=== PATIENT | male | born 1965 | race Caucasian/White ===

== ENCOUNTER 2021-12-29 04:33 | Emergency (ER) | payer MEDICARE, SELFPAY ==
[2021-12-29] VITALS (20 sets, daily range): BP systolic 100–122; BP diastolic 73–88; PULSE 85–105; RESP 13–23; TEMP 36.7; O2SAT 93–99
--- NOTE | ~2021-12-29 | CT_ITS ---
EXAMINATION: CT abdomen pelvis w con DATE: 12/29/2021 06:16 INDICATION: Epigastric pain, nausea, bloody emesis and diarrhea. TECHNIQUE: Computed tomography (CT) of the abdomen and pelvis was performed with 75 mL Omnipaque-300 intravenous contrast. Automated exposure control and iterative reconstruction technique were employed . The dose-length product was 433.74 mGy-cm. COMPARISON: 08/27/2018 FINDINGS: Mild emphysema with dependent predominant atelectasis at the bilateral lung bases. Heart size is norm al. Minimal pericardial effusion. No pleural effusion. Small sliding-type hiatal hernia. Diffuse hepa tic steatosis. Spleen, pancreas and, bilateral adrenal glands and kidneys are normal. Calcified perip ortal lymph nodes consistent with old granulomatous disease. Bowels including the appendix are normal . Bladder is normal. No free intraperitoneal gas or fluid. No pathologically enlarged abdominal or pe lvic lymphadenopathy. Small fat-containing left inguinal hernia. Right-sided sacralized L5 segment. IMPRESSION: 1. Small sliding-type hiatal hernia. 2. Diffuse hepatic steatosis. 3. Very small pericardial effusion. Reviewed, dictated and finalized at [facility].
[2021-12-29 05:27] LABS: Basophils Percent Auto 0.5 % (0.2-1.2); Eosinophils Absolute Auto 0.1 K/mm3 (0-0.3); Eosinophils Percent Auto 1.1 % (0-4.4); Hematocrit 47.4 % (42.0-52.0); Hemoglobin 16.3 g/dL (14.0-18.0); Immature Granulocyte Absolute 0.03 K/mm3 (0.00-0.031); Immature Granulocyte Percent A 0.4 % (0-0.5); Lymphocytes Absolute Auto 1.64 K/mm3 (0.9-3.2); Lymphocytes Percent Auto 19.2 % (18.3-44.2); Mean Corpuscular HGB Conc 34.4 g/dl (32-36); Mean Corpuscular Hemoglobin 30.1 pg (26-34); Mean Corpuscular Volume 87.5 fl (80-100); Mean Platelet Volume 9.1 fl (7.4-10.4); Monocytes Absolute Auto 1.1 K/mm3 (0.1-0.6); Monocytes Percent Auto 12.3 % (2.6-8.5); Neutrophils Absolute Auto 5.7 K/mm3 (1.3-6.7); Neutrophils Percent Auto 66.5 % (45.5-73.1); Platelet Count Result 226 k/mm3 (150-375); Red Blood Count 5.42 M/mm3 (4.6-6.20); Red Cell Distribution Width 13.5 % (11.5-14.5); White Blood Count 8.5 K/mm3 (4.5-10.0)
[2021-12-29 05:39] LABS: Alanine Aminotransferase 65 U/L (6-50); Albumin Level 3.9 g/dL (3.5-5.1); Alkaline Phosphatase 73 U/L (38-126); Anion Gap 7 mmol/L (8-16); Aspartate Amino Transferase 118 U/L (17-59); Blood Urea Nitrogen 5 mg/dL (9-20); Calcium 8.3 mg/dL (8.4-10.2); Carbon Dioxide 32 mmol/L (22-30); Chloride 89 mmol/L (98-107); Estimated CRCL calculation 110 ml/min; Estimated Glomerular Filt Rate > 60; Glucose 123 mg/dL (65-110); Lipase 177 U/L (23-300); Potassium 3.3 mmol/L (3.4-5.0); Sodium 128 mmol/L (137-145)
[2021-12-29] MEDS: LIDOCAINE HCL 2% VISC SOLN 15 ML UDC 20 ML PO (05:50)
[2021-12-29] MEDS: MAG HYDROX/AL HYDROX/SIMETH 30 ML UDC PO (05:51)
[2021-12-29] MEDS: SODIUM CHLORIDE 0.9% IV 1,000 ML 999 ML IV CONT ×2 (05:51→06:56)
[2021-12-29] MEDS: ONDANSETRON INJ 4 MG/2 ML VIAL IV PUSH (05:51)
--- NOTE | 2021-12-29 05:55 | ED.ABDPAIN ---
HPI - Abdominal Pain General Chief Complaint: Abdominal Pain <Ritesh Hines MD - Last Filed: 12/29/21 07:03> Stated Complaint: Abd Pain <Ritesh Hines MD - Last Filed: 12/29/21 07:03> Time Seen by Provider: 12/29/21 05:07 <Ritesh Hines MD - Last Filed: 12/29/21 07:03> Source: patient <Ritesh Hines MD - Last Filed: 12/29/21 07:03> History of Present Illness HPI narrative: Patient presents with abdominal pain and esophageal pain. Reports he has been feeling sick for the past few days since being released from shelter. Reports has been throwing up and been unable to keep anything down. Reports he is noted streaks of blood and is vomit his pain appears to be getting worse so he came to the ER for evaluation. Denies any fevers, diarrhea, bloody stools, urinary symptoms. Ports his pain is primarily in his epigastric area achy, constant, no clear aggravating or alleviating factors, radiates up into his chest. Reports he is concerned that maybe he has an ulcer disease been stressed since leaving shelter. <Ritesh Hines MD - Last Filed: 12/29/21 07:03> Related Data Allergies/Adverse Reactions: Allergies Allergy/AdvReac Type Severity Reaction Status Date / Time bee venom protein (honey bee) Allergy Unknown Verified 03/11/17 15:55 <Ritesh Hines MD - Last Filed: 12/29/21 07:03> Review of Systems Review of Systems: CONSTITUTIONAL: Denies fever, chills, or sweats. EYES: Denies visual changes, redness, or discharge. ENT: Denies rhinorrhea, congestion, sore throat, or otalgia. CARDIOVASCULAR: Denies chest pain, palpitations, or edema. RESPIRATORY: Denies cough or dyspnea. GASTROINTESTINAL: Epigastric pain with nausea and vomiting GENITOURINARY: Denies dysuria or hematuria. SKIN: Denies rash or itching. MUSCULOSKELETAL: Denies back pain, joint pain, or myalgia. NEUROLOGIC: Denies headache, numbness, dizziness, or weakness. PSYCHIATRIC: Denies anxiety or depression. <Ritesh Hines MD - Last Filed: 12/29/21 07:03> All systems reviewed & are unremarkable except as noted in HPI and below <Ritesh Hines MD - Last Filed: 12/29/21 07:03> PMFSH Past Medical History Medical History: Medical History (Updated 12/29/21 @ 06:48 by Ritesh Hines MD) Patient denies significant medical history <Ritesh Hines MD - Last Filed: 12/29/21 07:03> Social History Social History: Social History (Updated 12/29/21 @ 05:58 by Ritesh Hines MD) Substance use type: does not use Living arrangements: homeless <Ritesh Hines MD - Last Filed: 12/29/21 07:03> Exam Narrative: GENERAL: Well-appearing, well-nourished, and in no acute distress. HEAD: Normocephalic, atraumatic. EYES: PERRLA and EOMI. ENT: Nares clear, no rhinorrhea or epistaxis. Mucous membranes moist. NECK: Supple. No masses. No JVD CHEST: Clear to auscultation. No respiratory distress. No wheezes rales or rhonchi HEART: Regular rate and rhythm. No murmur heard. Normal peripheral pulses. ABDOMEN: Soft, nontender, nondistended, normal active bowel sounds. EXTREMITIES: Normal range of motion. No edema. SKIN: Warm, dry, no rash. NEURO: No focal deficits. Alert and oriented x3. PSYCH: Normal mood and affect. <Ritesh Hines MD - Last Filed: 12/29/21 07:03> Course Reevaluation(s) Reevaluation #1: Patient is starting to feel improved after supportive therapies. <Ritesh Hines MD - Last Filed: 12/29/21 07:03> Patient care was signed out to me by Dr. Hines. CT on pelvis impression: Small hiatal hernia, with mild wall thickening of the distal esophagus. The need for upper GI endoscopy should be determined clinically. Diverticulosis without acute diverticulitis. No small bowel obstruction. No free intraperitoneal air. Normal appendix. --- Patient was updated on the results of CT. Patient was comfortable with the plan for discharge and close follow-up with <Carlos Duffy
[2021-12-29 06:54] LABS: Add Urine Microscopic? YES; Appearance Urine Clear (Clear); Bilirubin Urine Negative (Negative); Blood Urine Negative (Negative); Color Urine Yellow (Yellow); Glucose Urine UA Negative (Negative); Ketones Urine 2+ mg/dL (Negative); Leukocyte Esterase Ur Negative LEU/UL (Negative); Nitrate Urine Negative (Negative); Protein Urine Negative (Negative); Urobilinogen Urine 0.2 mg/dL (<2.0)
[2021-12-29] MEDS: POTASSIUM CHLORIDE 20 MEQ PACKET (FOR LIQUID) 40 MEQ PO (06:55)
[2021-12-29 06:58] LABS: RBC Urine 0-2 /hpf (0-2); WBC Urine 0-3 /hpf
--- NOTE | 2021-12-29 07:12 | PC.NURSE ---
Patient report received from MINDI Dubon. All questions answered and care of patient assumed. Patient resting comfortably in stretcher at this time. Reports pain at 5/10 at this time but denies nausea. Reports his pain is much improved and does not request any additional pain medication at this time. VSS. Awaiting CT results. Call light within reach. Will address needs as they arise.
== END 2021-12-29 08:00 | disposition home or self-care (01) ==
PROVIDERS: Emergency Provider Emergency Medicine
DX: R10.13 Epigastric pain (principal); E86.0 Dehydration; K44.9 Diaphragmatic hernia without obstruction or gangrene; K76.0 Fatty (change of) liver, not elsewhere classified; Z59.00 Homelessness unspecified
CPT/HCPCS: 36415; 74177; 80053; 81001; 83690; 85025; 96361; 96374; 99284; A9270; J2405; J7030; Q9967

== ENCOUNTER 2022-01-05 22:39 | Emergency (ER) | payer MEDICARE, SELFPAY ==
--- NOTE | ~2022-01-05 | CT_ITS ---
EXAMINATION: CT brain wo con DATE: 01/06/2022 01:46 INDICATION: Altered mental state. Intoxication. TECHNIQUE: Computed tomography (CT) of the head was performed without intravenous contrast. The mA wa s adjusted according to patient size. Iterative reconstruction technique was employed. Exam dose: 60 5.33 mGy-cm total exam DLP. COMPARISON: 03/24/2012 CT brain FINDINGS: No intracranial mass lesion or hemorrhage or cerebrovascular accident is evident. There is no midline shift or mass effect. There is greater than expected cerebral volume loss for age. No subdural or epidural hematoma. No fracture or bone destruction of the cranial vault. Included paranasal sinuses and mastoid air cell s are normally developed and aerated. IMPRESSION: No acute intracranial finding Reviewed, dictated and finalized at [facility]. Reviewed, dictated and finalized at location [facility].
[2022-01-05 22:40] VITALS: BP 125/83; PULSE 105; RESP 17; TEMP 36.3; O2SAT 94
[2022-01-05 22:50] VITALS: BP 125/83; PULSE 109; O2SAT 97
--- NOTE | 2022-01-05 22:56 | ED.GENADULT ---
HPI - General Adult General Chief complaint: Alcohol <Gustavo Galvez APRN - Last Filed: 01/05/22 23:45> Stated complaint: drunk, ams <Gustavo Galvez APRN - Last Filed: 01/05/22 23:45> Time Seen by Provider: 01/05/22 22:46 <Gustavo Galvez APRN - Last Filed: 01/05/22 23:45> History of Present Illness HPI narrative: 56-year-old male presents to the emergency room by EMS for evaluation of alcohol intoxication. According to EMS, patient was found in someone's yard unresponsive. Police were called to the scene and found the patient was intoxicated. Patient has no complaints of pain at this time. Patient states that he is homeless, currently living under a overpass <Gustavo Galvez APRN - Last Filed: 01/05/22 23:45> Related Data Allergies/adverse reactions: Allergies Allergy/AdvReac Type Severity Reaction Status Date / Time bee venom protein (honey bee) Allergy Unknown Unknown Verified 01/05/22 22:53 <Gustavo Galvez APRN - Last Filed: 01/05/22 23:45> Review of Systems Review of Systems: ROS unobtainable: Yes unobtainable due to mental status <Gustavo Galvez APRN - Last Filed: 01/05/22 23:45> [facility] Past Medical History Medical History: Medical History Patient denies significant medical history <Gustavo Galvez APRN - Last Filed: 01/05/22 23:45> Social History Social History: Social History Substance use type: does not use <Gustavo Galvez APRN - Last Filed: 01/05/22 23:45> Exam Narrative: GENERAL: Disheveled HEAD: Normocephalic, atraumatic. EYES: PERRLA and EOMI. CHEST: Clear to auscultation. No respiratory distress. No wheezes rales or rhonchi HEART: Regular rate and rhythm. No murmur heard. Normal peripheral pulses. ABDOMEN: Soft, nontender, nondistended, normal active bowel sounds. EXTREMITIES: Normal range of motion. No edema. SKIN: Warm, dry, no rash. NEURO: No focal deficits. Alert and oriented x 1. PSYCH: Acutely intoxicated. <Gustavo Galvez APRN - Last Filed: 01/05/22 23:45> Course Reevaluation(s) Reevaluation #1: Received signout on the patient pending metabolization and reassessment <Ritesh Hines MD - Last Filed: 01/06/22 18:58> Date: 01/06/22 <Ritesh Hines MD - Last Filed: 01/06/22 18:58> Time: 02:56 <Ritesh Hines MD - Last Filed: 01/06/22 18:58> Reevaluation #2: Patient remained clinically stable throughout the remainder of his ER stay. Patient was signed out to Dr. Kauffman for continued metabolization reevaluation. <Ritesh Hines MD - Last Filed: 01/06/22 18:58> Date: 01/06/22 <Ritesh Hines MD - Last Filed: 01/06/22 18:58> Time: 07:03 <Ritesh Hines MD - Last Filed: 01/06/22 18:58> Reevaluation #3: Patient signed out to me pending improvement intoxication, he is now up, feeling better, ready to go home, has no further complaints, he has a ride. He is stable for discharge at this time and can return for any further issues. <Cristiana Kauffman MD - Last Filed: 01/06/22 10:24> Vital Signs Vital signs: Vital Signs Temperature 36.3 C L 01/05/22 22:40 Pulse Rate 105 H 01/05/22 22:40 Respiratory Rate 17 01/05/22 22:40 Blood Pressure 125/83 01/05/22 22:40 Pulse Oximetry 94 01/05/22 22:40 Temperature 36.3 C L 01/05/22 22:40 Pulse Rate 102 H 01/06/22 09:07 Respiratory Rate 16 01/06/22 09:07 Blood Pressure 126/83 01/06/22 09:07 Pulse Oximetry 95 01/06/22 09:07 <Gustavo Galvez, TURKEY BONER - Last Filed: 01/05/22 23:45> Vital Signs Temperature 36.3 C L 01/05/22 22:40 Pulse Rate 105 H 01/05/22 22:40 Respiratory Rate 17 01/05/22 22:40 Blood Pressure 125/83 01/05/22 22:40 Pulse Oximetry 94 01/05/22 22:40 Temperature 36.3 C L 01/05/22 22:40 Pulse Rate 102 H 01/06/22 09:07 Respiratory Rate 16 01/06/22 09:
--- NOTE | 2022-01-05 23:20 | PC.NURSE ---
rf technician placed with pt as he is a fall risk.
[2022-01-05 23:45] VITALS: BP 119/75; PULSE 110; O2SAT 96
--- NOTE | 2022-01-05 23:53 | PC.NURSE ---
Pt placed on bed alarm and sitter at bedside due to intoxication and impulsivity
[2022-01-06 00:48] LABS: Add Urine Microscopic? YES; Appearance Urine Clear (Clear); Bilirubin Urine Negative (Negative); Blood Urine Trace-lysed (Negative); Color Urine Yellow (Yellow); Glucose Urine UA Negative (Negative); Ketones Urine Negative (Negative); Leukocyte Esterase Ur Negative LEU/UL (Negative); Nitrate Urine Negative (Negative); Protein Urine Negative (Negative); Specific Grav Ur <= 1.005 (1.001-1.035); Urobilinogen Urine 0.2 mg/dL (<2.0); pH Urine 5.5 (5.0-9.0)
[2022-01-06 00:49] LABS: Bacteria Urine Trace /hpf; RBC Urine 0-2 /hpf (0-2); WBC Urine 0-3 /hpf
[2022-01-06 00:49] LABS: Basophils Absolute Auto 0.1 K/mm3 (0.0-0.1); Basophils Percent Auto 0.9 % (0.2-1.2); Eosinophils Absolute Auto 0.1 K/mm3 (0-0.3); Hemoglobin 14.6 g/dL (14.0-18.0); Immature Granulocyte Absolute 0.02 K/mm3 (0.00-0.031); Immature Granulocyte Percent A 0.3 % (0-0.5); Lymphocytes Absolute Auto 2.54 K/mm3 (0.9-3.2); Lymphocytes Percent Auto 32.9 % (18.3-44.2); Mean Corpuscular Hemoglobin 30.5 pg (26-34); Mean Corpuscular Volume 89.8 fl (80-100); Mean Platelet Volume 8.8 fl (7.4-10.4); Monocytes Absolute Auto 0.8 K/mm3 (0.1-0.6); Monocytes Percent Auto 10.6 % (2.6-8.5); Neutrophils Absolute Auto 4.2 K/mm3 (1.3-6.7); Neutrophils Percent Auto 54.3 % (45.5-73.1); Platelet Count Result 233 k/mm3 (150-375); Red Blood Count 4.79 M/mm3 (4.6-6.20); Red Cell Distribution Width 14.8 % (11.5-14.5); White Blood Count 7.7 K/mm3 (4.5-10.0)
[2022-01-06 00:54] LABS: Alanine Aminotransferase 67 U/L (6-50); Albumin Level 4.2 g/dL (3.5-5.1); Alkaline Phosphatase 79 U/L (38-126); Anion Gap 13 mmol/L (8-16); Aspartate Amino Transferase 100 U/L (17-59); Bilirubin,Total 0.4 mg/dL (0.2-1.3); Blood Urea Nitrogen 9 mg/dL (9-20); Calcium 7.8 mg/dL (8.4-10.2); Carbon Dioxide 25 mmol/L (22-30); Chloride 104 mmol/L (98-107); Estimated CRCL calculation 77 ml/min; Estimated Glomerular Filt Rate > 60; Glucose 97 mg/dL (65-110); Potassium 3.5 mmol/L (3.4-5.0); Sodium 142 mmol/L (137-145)
[2022-01-06 01:08] LABS: Amphetamine Screen Urine Negative (Negative); Barbiturate Screen Urine Negative (Negative); Benzodiazepines Screen Urine Negative (Negative); Cannabinoid Screen Urine Negative (Negative); Cocaine Screen Urine Negative (Negative); Methadone Screen Urine Negative (Negative); Opiate Screen Urine Negative (Negative); Phencyclidine Screen Urine Negative (Negative)
[2022-01-06 01:20] LABS: Ethanol 416 mg/dL (<10)
[2022-01-06 01:45] VITALS: BP 129/86; PULSE 106; RESP 17; O2SAT 96
[2022-01-06 03:18] VITALS: BP 98/73; PULSE 88; O2SAT 97
[2022-01-06 07:21] LABS: Ethanol 271 mg/dL (<10)
--- NOTE | 2022-01-06 07:26 | PC.NURSE ---
Patient report received from MINDI Sarabia. All questions answered and care of patient assumed.
--- NOTE | 2022-01-06 07:39 | PC.NURSE ---
Patient is resting quietly in the stretcher. Appears to be asleep with eyes closed. Regular non-labored breathing. Patient remains on bed alarm for safety. Will continue to address needs.
[2022-01-06 09:07] VITALS: BP 126/83; PULSE 102; RESP 16; O2SAT 95
--- NOTE | 2022-01-06 09:33 | PC.NURSE ---
Patient awake at this time. Breakfast tray ordered. Water provided. VSS. Patent alert and oriented with clear speech.
== END 2022-01-06 10:44 | disposition home or self-care (01) ==
PROVIDERS: Emergency Medicine; Nurse Practitioner Family; Emergency Provider Emergency Medicine
DX: F10.129 Alcohol abuse with intoxication, unspecified (principal); Y90.8 Blood alcohol level of 240 mg/100 ml or more; Z59.02 Unsheltered homelessness
CPT/HCPCS: 36415; 70450; 80053; 80307; 81001; 85025; 99284